=== PATIENT | male | born 1945 | race Caucasian/White ===

== ENCOUNTER 2017-07-22 11:00 | Emergency (ER) | payer OTHER ==
[~2017-07-22] VITALS: Ht 160 cm; Wt 93.6 kg
[2017-07-22 11:03] VITALS: Ht 160 cm; Wt 93.6 kg
[2017-07-22 11:16] VITALS: BP 189/89
[2017-07-22] MEDS ORDERED: CETI10CA PO (12:15)
[2017-07-22] MEDS ORDERED: TRIA15CR55 TOP (12:15)
--- NOTE | 2017-07-22 12:19 | ERD ---
ER Documentation Chief Complaint Chief Complaint Pt presents with generalized body rash X 1 month, worst couple of days. HPI 72-year-old male presents with a itchy rash on his trunk intermittently for the last month although worsening. He states he may have an allergy to history while off. He denies any fevers, vomiting, shortness of breath. He denies any lesions on his hands or feet. ROS All systems reviewed and are negative except as per history of present illness. Medications Home Meds Active Scripts Cetirizine Hcl* (Zyrtec*) 10 Mg Capsule, 10 MG PO DAILY, #30 TAB.CHEW Prov:SALINAS HU MD 07/22/17 Triamcinolone Acetonide (Triamcinolone Acetonide) 0.1% - 15 Gm Cream.gm., 1 APPLIC TOP BID for 10 Days, #1 TUB 30G Prov:SALINAS HU MD 07/22/17 PMhx/Soc Medical and Surgical Hx: pt denies Medical Hx, pt denies Surgical Hx History of Surgery: No Anesthesia Reaction: No Hx Neurological Disorder: No Hx Respiratory Disorders: No Hx Cardiac Disorders: No Hx Psychiatric Problems: No Hx Miscellaneous Medical Probl: No Hx Substance Use: No Physical Exam Vitals Vital Signs Date Time Temp Pulse Resp B/P Pulse Ox O2 Delivery O2 Flow Rate FiO2 07/22/17 11:16 189/89 07/22/17 11:03 97.6 56 17 205/92 95 Physical Exam Const: [] Alert, pleasant, [id number]. Head: Atraumatic Eyes: Normal Conjunctiva ENT: Normal External Ears, Nose and Mouth. Neck: Full range of motion..~ No meningismus. Resp: Clear to auscultation bilaterally Cardio: Regular rate and rhythm, no murmurs Abd: Soft, non tender, non distended. Normal bowel sounds Skin: No petechiae or purpura. Scattered excoriated macular papular rash on the trunk and the back. No warmth, erythema or streaking. No lesions on the hands or the feet. Back: No midline or flank tenderness Ext: No cyanosis, or edema Neur: Awake and alert Psych: Normal Mood and Affect Results 24 hrs Current Medications Medications (Trade) Dose Ordered Sig/Davon Route PRN Reason Start Time Stop Time Status Last Admin Dose Admin Diphenhydramine HCl (Benadryl) 25 mg ONCE ONCE IM 07/22/17 12:30 07/22/17 12:31 Procedures/[facility] Presents with a nonspecific dermatitis without signs of cellulitis, purpura or life-threatening rashes, anaphylaxis.. There is no evidence of ulcerations or additional emergent causes of rash. He may have contact dermatitis. He will be treated with triamcinolone and Benadryl 25 mg IM here by request and Zyrtec at home. The patient was stable with no new complaints during the ER course. Clinically, there is no current evidence to suggest meningitis, sepsis, acute abdomen, pneumonia, acute coronary syndrome, pulmonary embolism, or any other emergent condition appearing to require further evaluation or hospitalization. The patient should certainly return for any new or worsening symptoms per the aftercare instructions. They should otherwise follow-up with her primary care doctor for reevaluation this week. Departure Diagnosis: Primary Impression: Rash Condition: Stable Patient Instructions: Dermatitis, Non-Specific [facility]errals: [facility] Usted se sigala hecho un examen mdico de control que le indica que no est en marifer condicin que requiera tratamiento urgente en el Departamento de Emergencia. Un estudio ms profundo y el tratamiento de lyons condicin pueden esperar sin ningn riesgo hasta que usted sea atendida/o en el consultorio de lyons mdico o marifer cl mita. Es responsabilidad suya arreglar marifer digna para el seguimiento del radha. MANEJO DE CONDICIONES NO URGENTES EN EL FUTURO 1) Si usted tiene un mdico de atencin primaria: Usted debera llamar a lyons mdico de atencin primaria antes de venir al departamento de emergencia. Despus de las horas de consultorio, lyons doctor o lyons asociado/a est disponible por telfono. El mdico o enfermero de kim en el servicio telefnico puede asesorarle por liliane medio para atender el problema, o radha contrario se puede programar marifer digna. 2) Si usted no tiene un mdico de atencin primaria: Llame al mdico o clnica de referencia que aparece abajo joce las horas de consultorio para hacer marifer digna para que le vean. CLINICAS: [facility] [phone] [facility] [phone] [place] [phone] [place] [address] [phone] [facility] [place] [address] [phone] [facility]. [phone] [address] Additional Instructions: POSIBLEMENTE ALLERGIA. Cheque otro vez con lyons doctor primario en el proximo tafoya or regresa para mas o nueva simptomas. SALINAS HU MD Jul 22, 2017 12:19
[2017-07-22] MEDS ORDERED: DIPHENHYDRAMINE 50 MG INJ IM ONE (12:30)
== END 2017-07-22 13:22 | disposition home or self-care (01) ==
LOC: FTE 11:00
DX: R21 Rash and other nonspecific skin eruption (principal)
CPT/HCPCS: 96372; 99284; J1200